=== PATIENT | female | born 1955 | race Caucasian/White ===

== ENCOUNTER 2020-05-20 10:44 | Day surgery (SDC) | payer MEDICARE ==
[~2020-05-20] VITALS: Ht 170.2 cm; Wt 98.1 kg
[2020-05-20] MEDS ORDERED: LACTATED RINGERS 1,000 ML IV SCH (11:30)
[2020-05-20] MEDS ORDERED: CHLORHEXIDINE 15 ML UDC PO ONE (11:30)
[2020-05-20] MEDS ORDERED: OXYC5CAP2 PO (11:35)
[2020-05-20] MEDS ORDERED: GLIP5TAB22 PO (11:35)
[2020-05-20] MEDS ORDERED: DULO30CA2 PO (11:35)
[2020-05-20] MEDS ORDERED: AMLO1CAP5 PO (11:35)
[2020-05-20] MEDS ORDERED: ONDA4TAB13 SL (11:35)
[2020-05-20] MEDS ORDERED: LEVO150T5 PO (11:35)
[2020-05-20] MEDS ORDERED: FURO20TA3 PO (11:35)
[2020-05-20] MEDS ORDERED: TIZA4CAP PO (11:35)
[2020-05-20] MEDS ORDERED: METF500T27 PO (11:35)
[2020-05-20] MEDS ORDERED: symbicort INH (11:35)
[2020-05-20] MEDS ORDERED: SITA25TA PO (11:35)
[2020-05-20] MEDS ORDERED: [UNRECOGNIZED DRUG - OTHER] PO (11:35)
[2020-05-20] MEDS ORDERED: GABA-827 PO (11:35)
[2020-05-20] MEDS ORDERED: hydroxyzine PO (11:35)
[2020-05-20] MEDS ORDERED: RIVA20TA PO (11:35)
[2020-05-20] MEDS ORDERED: ROSU20TA2 PO (11:35)
[2020-05-20] MEDS ORDERED: CHLORHEXIDINE 15 ML UDC ONE (11:41)
[2020-05-20 12:05] VITALS: BP 138/87
[2020-05-20] MEDS ORDERED: FENTANYL PF 250 MCG/5ML ONE (12:07)
[2020-05-20 12:12] LABS: ALANINE AMINOTRANSFERASE 23 U/L (12-78); ALBUMIN 3.6 g/dL (3.4-5.0); ANION GAP 6 mmol/L (5-15); CALCIUM 8.8 mg/dL (8.5-10.1); CHLORIDE 106 mmol/L (98-107)
[2020-05-20 12:14] LABS: ALKALINE PHOSPHATASE 87 U/L (45-117); BILIRUBIN,TOTAL 0.8 mg/dL (0.2-1.0); CREATININE 0.63 mg/dL (0.55-1.02); TOTAL PROTEIN 7.4 g/dL (6.4-8.2)
[2020-05-20] MEDS ORDERED: ALBUTEROL HFA 90 MCG/SPRAY ONE (13:54)
[2020-05-20] MEDS ORDERED: METHOCARBAMOL 1,000 MG in DEXTROSE 5% 100 ML IV PRN (14:00)
[2020-05-20] MEDS ORDERED: OXYcodone 5 MG/5 ML ORAL.SOL UDC PO PRN (14:00)
[2020-05-20] MEDS ORDERED: PROMETHAZINE 25 MG/ML, 1ML IVPush PRN (14:00)
[2020-05-20] MEDS ORDERED: ONDANSETRON 2MG/ML, 2ML IVPush PRN (14:00)
[2020-05-20] MEDS ORDERED: LABETALOL 5MG/ML, 20ML IV PRN (14:00)
[2020-05-20] MEDS ORDERED: MEPERIDINE/PF 25MG/0.5ML IVPush PRN (14:00)
[2020-05-20] MEDS ORDERED: FENTANYL PF 100 MCG/2ML IV PRN (14:00)
[2020-05-20] MEDS ORDERED: hydrALAzine 20 MG/ML, 1ML IV PRN (14:00)
[2020-05-20] MEDS ORDERED: HYDROmorphone 1 MG/ML, 1ML INJ IVPush PRN (14:00)
[2020-05-20] MEDS ORDERED: EPHEDRINE 50 MG/ML, 1ML IVPush PRN (14:00)
[2020-05-20] MEDS ORDERED: ACETAMINOPHEN 325 MG TABLET PO PRN (14:00)
[2020-05-20] MEDS ORDERED: LORazepam 2 MG/ML, 1ML IVPush PRN (14:00)
== END 2020-05-20 15:15 | disposition home or self-care (01) ==
LOC: OUT 10:44 → EDSTATUS 12:45 → OUT 15:15
PROVIDERS: ATTEND Internal Medicine
DX: M54.5 Low back pain (principal); M48.07 Spinal stenosis, lumbosacral region; M54.16 Radiculopathy, lumbar region; Z88.1 Allergy status to other antibiotic agents; Z88.8 Allergy status to other drugs, medicaments and biological substances; Z79.899 Other long term (current) drug therapy; F17.210 Nicotine dependence, cigarettes, uncomplicated
CPT/HCPCS: 36415; 72148; 80053; 93005; J3010; J7120